=== PATIENT | female | born 1955 | race Caucasian/White ===

== ENCOUNTER → 2017-03-10 | Outpatient (CLI) | payer BC | LOC: FIMAGING 10:25 | PROVIDERS: ATTEND Family Medicine | DX: Z12.31 Encounter for screening mammogram for malignant neoplasm of breast (principal) | CPT/HCPCS: G0202 ==

== ENCOUNTER 2017-09-22 13:01 | Observation (INO) | payer BC ==
--- NOTE | 2017-09-22 13:25 | CPEKG ---
Heart Rate: 74 RR Interval: 811 P-R Interval: 148 QRSD Interval: 88 QT Interval: 396 QTC Interval: 440 P [place]: 30 QRS [place]: 10 T Wave [place]: 40 EKG Severity - NORMAL ECG - EKG Impression: SINUS RHYTHM Electronically Signed By: Sandhya Chavez 22-Sep-2017 20:58:21
[2017-09-22] MEDS ORDERED: ASPIRIN 81 MG CHEWABLE TAB PO ONE (13:28)
--- NOTE | 2017-09-22 13:31 | EDPHY ---
H & P Time Seen by Provider: 09/22/17 13:21 HPI/ROS: CHIEF COMPLAINT: Chest pain HISTORY OF PRESENT ILLNESS: Patient is a 61-year-old female with no significant past medical history presents emergency department with chest pain. Her pain started approximately 30 min ago while driving in her car. She describes a tightness in her chest. Of note, when she describes that she makes a fist over her sternum. She also states that there was "pulling at the back of my tongue."She felt that her jaw was slightly tight. She had nausea but no vomiting. No diaphoresis. She denies shortness of breath. She has had no new previous episodes. She denies leg pain or swelling. No recent travel. REVIEW OF SYSTEMS: My complete review of systems is negative except as mentioned in the HPI. Past Medical/Surgical History: Current UTI Past surgical history: Negative Social history: The patient denies tobacco. She denies drugs. Smoking Status: Never smoked Physical Exam: Vitals noted GENERAL: Well-appearing, in no acute distress, alert. HEENT: Eyes normal to inspection, normal pharynx, no signs of dehydration. NECK: No thyromegaly, no lymphadenopathy, supple. RESPIRATORY: Clear to auscultation bilaterally, no rales, rhonchi or wheezing. CVS: Regular rate and rhythm, no rubs, murmurs, or gallops. ABDOMEN: Soft, nontender, nondistended, no organomegaly. BACK: Normal to inspection, no CVA tenderness. SKIN: Normal color, no rash, warm, dry. No pallor. EXTREMITIES: No pedal edema, no calf tenderness, no Homans sign or cords, no joint swelling. NEURO/PSYCH: Alert and oriented x3, normal mood and affect, normal motor sensory exam. No obvious cranial nerve deficit. Constitutional: Initial Vital Signs Temperature (C) 36.6 C 09/22/17 13:02 Heart Rate 85 09/22/17 13:02 Respiratory Rate 18 09/22/17 13:02 Blood Pressure 125/90 H 09/22/17 13:02 O2 Sat (%) 93 09/22/17 13:02 O2 Delivery Mode Room Air Allergies/Adverse Reactions: No Known Allergies Allergy (Verified 09/22/17 13:01) Home Medications: Medication Instructions Recorded Estrogen Cream 1 cristobal TP MOTHSA 09/22/17 Medical Decision Making - Diagnostics Imaging Results: Imaging Impressions Chest X-Ray 09/22/17 13:29 Impression: Normal chest. ED Course/Re-evaluation: In the emergency department I discussed possible etiologies with the patient. I answered all her questions. IV was placed. Laboratory studies, EKG and chest x-ray was ordered. Patient was given aspirin 324 mg orally. At the time of my evaluation the patient was chest pain-free. EKG shows normal sinus rhythm, normal rate, normal axis, normal intervals. There are no ST or T-wave abnormalities. EKG is normal as interpreted by me. On recheck the patient was doing well. No further chest pain. Patient's troponin was negative. D-dimer was negative. CBC and chemistry unremarkable. I discussed the case with Dr. Vilchis from Cardiology. He recommended admission. I discussed the case with Dr. Nicole from hospitalist service. He will admit the patient. I discussed the plan with the patient and answered all her questions. Differential Diagnosis: My differential includes but is not limited to ACS, acute WA, myocarditis, pericarditis, pulmonary embolus, bronchitis, pneumonia, pneumothorax, GERD, hiatal hernia - Data Points Laboratory Results: Laboratory Results 09/22/17 13:35 09/22/17 13:35 09/22/17 09/22/17 09/22/17 13:35 13:35 13:35 WBC 6.90 10^3/uL 10^3/uL (3.80-9.50) RBC 4.73 10^6/uL 10^6/uL (4.18-5.33) Hgb 14.2 g/dL g/dL (12.6-16.3) Hct 42.0 % % (38.0-47.0) MCV 88.8 fL fL (81.5-99.8) MCH 30.0 pg pg (27.9-34.1) MCHC 33.8 g/dL g/dL (32.4-36.7) RDW 12.4 % % (11.5-15.2) Plt Count 195 10^3/uL 10^3/uL (150-400) MPV 11.8 fL H fL (8.7-11.7) Neut % (Auto) 69.1 % % (39.3-74.2) Lymph % (Auto) 25.2 % % (15.0-45.0) [place] % (Auto) 4.2 % L % (4.5-13.0) Eos % (Auto) 0.9 % % (0.6-7.6) Baso % (Auto) 0.3 % % (0.3-1.7) Nucleat RBC Rel Count 0.0 % % (0.0-0.2) Absolute Neuts (auto) 4.77 10^3/uL 10^3/uL (1.70-6.50) Absolute Lymphs (auto) 1.74 10^3/uL 10^3/uL (1.00-3.00) Absolute Monos (auto) 0.29 10^3/uL L 10^3/uL (0.30-0.80) Absolute Eos (auto) 0.06 10^3/uL 10^3/uL (0.03-0.40) Absolute Basos (auto) 0.02 10^3/uL 10^3/uL (0.02-0.10) Absolute Nucleated RBC 0.00 10^3/uL 10^3/uL (0-0.01) Immature Gran % 0.3 % % (0.0-1.1) Immature Gran # 0.02 10^3/uL 10^3/uL (0.00-0.10) D-Dimer 0.39 ug/mLFEU ug/mLFEU (0.00-0.50) Sodium 140 mEq/L mEq/L (135-145) Potassium 3.9 mEq/L mEq/L (3.5-5.2) Chloride 104 mEq/L mEq/L (97-110) Carbon Dioxide 24 mEq/l mEq/l (22-31) Anion Gap 12 mEq/L mEq/L (8-16) BUN 10 mg/dL mg/dL (7-23) Creatinine 0.6 mg/dL mg/dL (0.6-1.0) Estimated GFR > 60 Glucose 93 mg/dL mg/dL (70-100) Calcium 8.9 mg/dL mg/dL (8.5-10.4) Troponin I < 0.012 ng/mL ng/mL (0.000-0.034) Medications Given: Discontinued Medications Aspirin (Aspirin) 324 mg PO EDNOW ONE Stop: 09/22/17 13:29 Last Admin: 09/22/17 13:46 Dose: 324 mg Departure - Departure Disposition: [facility] Acute Clinical Impression: Chest pain Qualifiers: Chest pain type: other chest pain Qualified Code(s): R07.89 - Other chest pain Condition: Good
[2017-09-22 13:43] LABS: PLATELET COUNT 195 10^3/uL (150-400)
[2017-09-22] MEDS ORDERED: ONDANSETRON DISINTEGRATING 4 MG TAB PO PRN (14:39)
[2017-09-22] MEDS ORDERED: oxyCODONE IR 5 MG TAB PO PRN (14:39)
[2017-09-22] MEDS ORDERED: ZOLPIDEM TARTRATE 5 MG TAB PO PRN (14:39)
[2017-09-22] MEDS ORDERED: ACETAMINOPHEN 325 MG TAB PO PRN (14:39)
--- NOTE | 2017-09-22 15:11 | GHP ---
[f rep st] HISTORY AND PHYSICAL DATE OF ADMISSION: 09/22/2017 CHIEF COMPLAINT: Chest pain. HISTORY OF PRESENT ILLNESS: 61-year-old female with no significant past medical history who presents with chest pain. She describes it as a sharp tightness which occurred while she was the passenger i n a car. She clutches at her chest when she describes this. She felt a little bit nauseous during t his, no light headedness, dizziness, diaphoresis or shortness of breath. It lasted 15 or 20 minutes and then went away. She initially thought it was indigestion, however, it is different than her prev ious episodes of indigestion. It was also associated with pain in the back of her throat/jaw, with a sensation of pulling at her tongue. It has recurred several times. Lasted a very short amount of t ramiro, a few minutes. It occurred at about 1 o'clock today. She has never seen a pigeon fancier. She h as good exercise tolerance, she walks 45 minutes a day, this has not changed. She has never had a st ress test either. PAST MEDICAL AND SURGICAL HISTORY: 1. Recurrent urinary tract infection. 2. Hysterectomy. 3. Appendectomy. 4. . 5. Rotator cuff surgery. MEDICATIONS: Please see medication reconciliation. ALLERGIES: No known drug allergies. FAMILY HISTORY: She has diabetes in her family. No significant heart disease. SOCIAL HISTORY: She quit smoking when she was in her teens, she does not drink. REVIEW OF SYSTEMS: A 10-point review of systems is conducted and is negative except per HPI. PHYSICAL EXAM: VITAL SIGNS: Blood pressure 117/68, heart rate 72, respiration rate 16, sat 95% on r oom air, temperature 36.6. GENERAL: The patient is a very pleasant female who is resting comfortabl y. No acute distress. HEENT: Shows her to be normocephalic. CARDIOVASCULAR: Shows regular rate a nd rhythm. No murmurs, rubs, or gallops. No elevated JVD. No lower extremity edema. PULMONARY: S hows lungs clear to auscultation bilaterally. ABDOMEN: Soft, nontender, nondistended. SKIN: No ra sh. : No Mc. NEUROLOGIC: Shows her to be alert and oriented x3. She is moving all extremiti es. PSYCHIATRIC: Shows normal mood and affect. LABORATORY DATA: CBC is normal. D-dimer 0.39. Basic metabolic panel is normal. Creatinine 0.6, tr oponin is undetectable. DATA: 1. I discussed this with Dr. Chavez. We will admit to telemetry on observation. 2. I personally viewed and interpreted her chest x-ray, this shows nothing acute. 3. I personally viewed and interpreted her EKG, this shows sinus rhythm. No acute ischemic changes. IMPRESSION AND PLAN: This is a 61-year-old female with chest pain. Chest pain: She has a relatively low heart score, however, description of her pain is somewhat noam rning. Will admit, place on telemetry, trend troponins. If these are all negative and her chest augusto n resolves, we will check a treadmill stress test tomorrow. I note that her D-dimer is negative. Th is is a high-risk diagnosis. /[id number]/MODL
--- NOTE | 2017-09-22 16:37 | CPEKG ---
Heart Rate: 66 RR Interval: 909 P-R Interval: 144 QRSD Interval: 86 QT Interval: 420 QTC Interval: 441 P [place]: 41 QRS [place]: 8 T Wave [place]: 51 EKG Severity - NORMAL ECG - EKG Impression: SINUS RHYTHM Electronically Signed By: Alan Mejia 22-Sep-2017 20:16:07
[2017-09-23 08:24] VITALS: BP 126/46; PULSE 80; RESP 18; TEMP 97.5; O2SAT 95
--- NOTE | 2017-09-23 10:18 | PDCARST ---
CAR Stress Test Results Type of Stress Test: TM stress test Indication: cp Description of Procedure: After informed consent was obtained, pt was exercised according to [facility] Protocol. Monitoring was performed with standard stress testing shaking shipping electrode placement. Vital signs were monitored according to protocol throughout the procedure. STRESS EKG AND HEMODYNAMIC DATA. Exercise time: 10 min. This is equivalent to: 10.8 METS. Resting heart rate: 81 bpm. Resting blood pressure: 124/70 mmHg. Resting O2 saturation:93%. Peak heart rate: 164 bpm. This is 104% of age predicted maximum heart rate response. Peak blood pressure: 184/68 mmHg. Exercise O2: 95 %. Arrhythmias: None. Reason for termination: The test was stopped due to maximal effort. Symptoms: The patient experienced no typical symptoms of angina during stress or recovery. STRESS TEST ANALYSIS. Baseline ECG: SR. Stress ECG: SR/ artifact during middle stage of exercise. exercise induced ischemic ECG changes: No. Rhythm: No arrhythmias noted during exercise and recovery. Blood pressure: Normal blood pressure response to exercise. Exercise tolerance: The patient has normal exercise tolerance adjusted for age and gender. Symptoms: No exercise induced symptoms. Impression: Stress ECG negative for ischemia. The [place] Treadmill Score is +10, consistent with low cardiovascular risk (<1% annual mortality). Conclusion: Low risk stress test.
[2017-09-23] MEDS ORDERED: ESTROGEN TP SCH (15:06)
--- NOTE | 2017-09-23 17:22 | GDS ---
[f rep st] DISCHARGE SUMMARY DISCHARGE DIAGNOSES: Include chest pain, thought non-cardiac. HISTORY OF PRESENT ILLNESS: A 61-year-old female, quite healthy, who presents with episode of isolat ed chest pain the evening prior to presentation. For details of patient's initial presentation, kevon blum see the History and Physical dated 09/22/2017. CONSULTATIVE SERVICES: Cardiology. PROCEDURES: On 09/23/2017, patient underwent graded treadmill stress testing, which was negative for any inducible ischemia. HOSPITAL COURSE: By issue: Acute chest pain, atypical for this patient: Patient was admitted to [facility] PCU, had serial troponins and EKGs, was monitored on telemetry and ruled out. Was taken to success ful graded treadmill stress testing without any inducible changes. Patient has been instructed to re turn home to her normal activities and to follow with her outpatient primary care for any ongoing ang st pain symptoms. We did recommend that she keep a log of time of day, activity with which it is occ urring (if it does recur) to assist her primary in isolating a potential cause. MEDICATIONS AT DISPOSITION: Please reference medication reconciliation printed on 09/23/2017. FOLLOWUP APPOINTMENTS: Include with her primary care as needed for workup of her chest pain. TIME SPENT: I spent greater than 30 minutes in the planning and coordination of this discharge. /[id number]/MODL
== END 2017-09-23 12:09 | disposition home or self-care (01) ==
LOC: F2W 16:18
PROVIDERS: ADMIT Student in an Organized Health Care Education/Training Program; ATTEND Hospitalist
DX: R07.89 Other chest pain (principal); Z87.440 Personal history of urinary (tract) infections
CPT/HCPCS: 71046; 93005; 93017; 99285; G0378

== ENCOUNTER → 2017-10-27 | Outpatient (CLI) | payer BC | LOC: FIMAGING 11:09 | PROVIDERS: ATTEND Urology | DX: N94.89 Other specified conditions associated with female genital organs and menstrual cycle (principal); Z87.440 Personal history of urinary (tract) infections ==

== ENCOUNTER → 2018-10-21 | Outpatient (CLI) | payer BC | LOC: FIMAGING 15:50 | PROVIDERS: ATTEND Family Medicine | DX: Z12.31 Encounter for screening mammogram for malignant neoplasm of breast (principal) ==